=== PATIENT | male | born 1970 | race Caucasian/White ===

== ENCOUNTER 2024-11-15 09:34 | Outpatient (REF) | payer OTHER, SELFPAY ==
--- OUTSIDE RECORDS SUMMARY | 2024-11-15 12:37 | XMS_ITS | Encounter Summary ---
Author Organization [employer] Address [address] [place] [address] [place] [address] Care Team Providers Care Landscape Horticulture Instructor Name Role Phone Marlena Carreno MD Primary Care Provider [phone] Encounter Details Date Type Department Care Team ([facility] st Contact Info) Description 06/21/2024 Orders Only [facility] CHC MED & PEDS [address] [place], [place] [id number] Provider, MD Colby Social History Tobacco Use Types Packs/Day Years Used Date Smoking Tobacco: Never Smokeless Tobacco: Never Alcohol Use Standard Drinks/Week Comments Never 0 (1 standard drink = 0.6 oz pur e alcohol) Sex and Gender Information Value Date Recorded Sex Assigned at Male 08/16/2022 10:22 AM EDT Legal Sex Male 10:22 AM EDT Gender Identity Male 08/16/2022 10:22 AM EDT Sexual Orientation Straight 08/16/2022 10 :22 AM EDT documented as of this encounter Plan of Treatment Not on file documented as of this encounter Procedures Procedure Name Priority Date/Time Associated Diagnosis Comments CT ABDOMEN PELVIS W AND WO CONTRAST Routine 06/19/2024 9:23 AM EDT documented in this encounter Results * CT Abdomen Pelvis w/ and w/o Contrast (06/19/2024 9:23 AM EDT) Anatomical Region Laterality Modality Body, Pelvis, Abdomen Computed T omography Historical Provider MD FORMAN CT PROCEDURES Final R esult documented in this encounter Visit Diagnoses Not on filedocumented in this encounter Care Teams Landscape Horticulture Instructor Relationship Specialty Start Date End Date Marlena Carreno MD [address] [place], [place] [phone] PCP - General Family Medicine 02/26/21 documented as of this encounter
--- OUTSIDE RECORDS SUMMARY | 2024-11-15 12:37 | XMS_ITS | Encounter Summary ---
Author Organization [employer] Address [address] [place] [address] 7t [place] [address] Care Team Providers Care Rental Salesperson Name Role Phone Marlena Carreno MD Primary Care Provider [phone] Reason for Visit * Reason Onset Date Comments Nurse Triage 08/15/2023 Encounter Details Date Type Department Care Team ([facility] Contact Info) Description 08/15/2023 Telephone [facility] CHC MED & PEDS [address] [place] [address] Marlena Carreno MD [address] [place] [address] Nurse Triage Social History Tobacco Use Types Packs/Day Years Used Date Smoking Tobacco: Never Assessed Sex and Gender Information Value Date Recorded Sex Assigned at Male 08/16/2022 10:22 AM EDT Legal Sex Male 10:22 AM EDT Gender Identity Male 08/16/2022 10:22 AM EDT Sexual Orientation Straight 08/16/2022 10 :22 AM EDT documented as of this encounter Miscellaneous Notes * Telephone Encounter - Natalie Garcia RN - 08/15/2023 4:44 PM EDT Triage call Pt reports since 08/12/23 has had some difficulty urinating due to burning sensation.Pt reports some blood in the toilet and urgency. Pt reports has been cancer free for 33 years, Pt traveling in car during triage was short to describe specifics. Pt is neg for fever or flank pain. Ptis offered to come to [facility] today or tomorrow hours given , Pt declined. Pt is given 915am apt with Dr. Myers 08/19/23 due to work schedule unable to take SDC openings in afternoon. Advised to increase liquid intake including some cranberry juice and Pt agrees with disposition and home care advised.Insurance is verified as active prior to booking. Protocol Used: Urinary Symptoms (Adult) Protocol-Based Disposition: See in Office or Video Visit Today Override (Final) Disposition: See in Office or Video Visit within 3 Days Override Reason: Can't get off work Video visit not offered Positive Triage Questions: * Urinating more frequently than usual (i.e., frequency) * Patient wants to be seen * All higher-acuity triage questions were negative Care Advice Discussed: * Reasons To Call Back - Fever occurs - Pain or burning with urination - Unable to urinate and bladder feels full - You become worse * Telephone Encounter - Wanda Greenwood - 08/15/2023 4:11 PM EDT Symptom: Urination Pain Outcome: Schedule an urgent appointment (within 1 hour) or talk to a nurse or provider soon Reason: Blood in urine The caller accepted this outcome Please contact pt at [phone] documented in this encounter Plan of Treatment Not on file documented as of this encounter Visit Diagnoses Not on filedocumented in this encounter Care Teams Rental Salesperson Relationship Specialty Start Date End Date Marlena Carreno MD [address] [place] [id number] PCP - General Family Medicine 02/26/21 documented as of this encounter
--- OUTSIDE RECORDS SUMMARY | 2024-11-15 12:38 | XMS_ITS | Clinical Summary ---
Author Organization [employer] Address [address] [place] [address] 7t [place] [address] Care Team Providers Care Triple Valve Tester Name Role Phone Marlena Carreno MD Primary Care Provider [phone] Allergies No known active allergies Medications divalproex (Depakote) 250 MG EC tabletIndicati ons:Seizure (CMS/HCC) Take 1 tablet (250 mg) by mouth every 8 (eight) hours. 90 tablet 1 09/28/20 22 Active ibuprofen 600 MG tablet Take 1 tablet (600 mg) by mouth every 6 (six) hours if needed for mild pain for up to 20 doses. 20 tablet 09/04/20 24 Active ibuprofen 600 MG tablet Take 1 tablet (600 mg) by mouth every 6 (six) hours if needed for mild pain for up to 20 doses. 20 tablet 10/24/19 25 Active amoxicillin (Amoxil) 500 MG capsule Take 1 capsule (500 mg) by mouth every 8 (eight) hours for 7 days. 21 capsule 10/24/19 25 025 Discontinued(En tered in error) amoxicillin-cl avulanate (Augmentin) 875-125 MG tablet Take 1 tablet by mouth 2 times daily for 7 days. 14 tablet 10/24/19 25 025 Discontinued amoxicillin-cl avulanate (Augmentin) 875-125 MG tablet Take 1 tablet by mouth 2 times daily for 7 days. 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) 11/14/2024 Travel 11/14/2024 Telephone [facility] MED & PEDS [address] [place] [address] Marlena Carreno MD Chart Prep 10/24/2024 10:00 AM EST Office Visit [facility] ADULT DENTAL [address] [place] [address] Johan Kyle 10/24/[address] [address] Marlena Carreno MD Medication Question 10/17/2024 Travel 10/03/2024 Telephone [facility] ADULT DENTAL [address] [place] [address] Ashley Kylericio 09/28/2024 9:00 AM EST Office Visit [facility] MED & PEDS [address] [place] [address] Marlena Carreno MD Postprandial diarrhea (Primary Dx); Dietary counseling; Exercise counseling; Other generalized epilepsy, not intractable, without status epilepticus ([facility]/HCC) 09/28/2024 Travel 09/26/2024 Telephone [facility] MED & PEDS [address] [place] [address] Marlena Carreno MD Chart Prep 09/24/2024 8:00 AM EST Office Visit [facility] ADULT DENTAL [address] [place] [address] Ashley Kylericio 09/21/2024 Travel 09/18/2024 Patient Outreach [facility] MED & PEDS [address] [place] [address] Marlena Carreno MD Pre-visit Planning ([facility] unable to reach [facility]) 09/17/2024 Travel 09/04/2024 8:30 AM EST Office Visit [facility] ADULT DENTAL [address] [place] [address] Johan Kyle 09/03/2024 Travel 09/03/2024 Telephone [facility] MED & PEDS [address] [place] [address] Marlena Carreno MD Referral from Last 3 Months Immunizations Name Administration Dates Next Due Influenza Injectable Quadriv alant Preservative Free IIV4 MDCK 07/08/2023,08/01/2022,09/08/2021 Influenza, IIV3, injectable 10/23/2012, 1 Influenza, Injectable, MDCK, preservative free 07/09/2024 Influenza, trivalent, adjuvanted 10/23/2012,1002/2011 Tdap 08/09/2011 Social History Tobacco Use Types Packs/Day Years Used Date Smoking Tobacco: Never Passive Smoke Exposure: Never Smokeless Tobacco: Never Tobacco Cessation:Counseling Given: Not Answered Alcohol Use Standard Drinks/Week Comments Never 0 (1 standard drink = 0.6 oz pur e alcohol) Housing Stability Answer Date Recorded What is your housing situation today? I have samreen slaughter 09/28/[address] you li ve. Do you have problems with any of the following? None of the above 09/28/2024 Food Insecurity Answer Date Recorded Within the past 12 months, y ou worried that your food would run out before you got money to buy more: Never True 09/28/2024 Within the past 12 months,th e food you bought just didn't last and you didn't have enough money to get more: Never True Transportation Answer Date Recorded In the past 12 months, has l ack of transportation kept you from medical appts, meetings, work or from getting things needed for daily living? No 09/28/2024 Utilities Answer Date Recorded In the past 12 months, has t he electric, gas, oil or water company threatened to shut off services in your home? No 09/28/2024 Internet Access Answer Date Recorded Internet Access Q1 Yes 09/28/2024 Internet Access Q2 Not on file 09/28/2024 Sex and Gender Information Value Date Recorded Sex Assigned at Male 08/16/2022 10:22 AM EDT Legal Sex Male 10:22 AM EDT Gender Identity Male 08/16/2022 10:22 AM EDT Sexual Orientation Straight 08/16/2022 10 :22 AM EDT Last Filed Vital Signs Vital Sign Reading Time Taken Comments Blood Pressure 142/80 11/15/2024 9:12 AM EST Pulse 70 11/15/2024 9:12 AM EST Temperature 36.6 ??C (97.8 ??F) 11/15/2024 9:12 AM ES T Respiratory Rate 20 11/15/2024 9:12 AM EST Oxygen Saturation 97% 11/15/2024 9:12 AM EST Inhaled Oxygen Concentration - - Weight 107 kg (235 lb) 11/15/2024 9:12 AM EST Height 180.3 cm (5' 11 ) 11/15/2024 9:12 AM EST Body Mass Index 32.78 11/15/2024 9:12 AM EST Plan of Treatment Health Maintenance Due Date Last Done Comments CT Colonography 1968 Dental Prophylaxis 1968 Depression Screening 1968 FIT DNA/Cologuard 1968 FIT 1968 FOBT 1968 HIV Screening 1968 Lipid Panel 1968 Sigmoidoscopy 1968 Hepatitis C Screening 1986 Hepatitis B Vaccines (1 of 3 - 19+ 3-dose series) 1987 Dental Oral Exam 05/24/2013 11/23/2012 Dental X-Ray: Full Mouth 11/24/2015 11/23/2012 Pneumococcal Vaccine: 50+ Years (1 of 1 - PCV) 2018 Zoster Vaccines (1 of 2) 2018 DTaP/Tdap/Td Vaccines (2 - Td or Tdap) 08/09/2021 08/09/2011 Colonoscopy 07/20/2025 07/20/2022 Colorectal Cancer Screening 07/20/2025 Dental X-Ray: Bitewings 09/05/2025 09/04/2024, 11/23 Alcohol/Substance Use Screening 09/28/2025 09/28/2024 SDOH Screening 09/28/2025 09/28/2024 Tobacco Screening 11/15/2025 11/15/2024 RSV Patients and Patients Aged 60 years or older (1 - 1-dose 75+ series) 2043 COVID-19 Vaccine Completed 07/09/2024, , 08/01/2022, Additional history exists Influenza Vaccine Completed 07/09/2024, , 08/01/2022, Additional history exists HIB Vaccines Aged Out No longer eligi ble based on patient's age to complete this topic HPV Vaccines Aged Out No longer eligi ble based on patient's age to complete this topic Hepatitis A Vaccines Aged Out No long er eligible based on patient's age to complete this topic IPV Vaccines Aged Out No longer eligi ble based on patient's age to complete this topic Meningococcal Vaccine Aged Out No tl vania eligible based on patient's age to complete this topic RSV under 20 months Aged Out No longe r eligible based on patient's age to complete this topic Rotavirus Vaccines Aged Out No longer eligible based on patient's age to complete this topic Procedures Procedure Name Priority Date/Time Associated Diagnosis Comments 30 EXTRACTION, ERUPTED TOOTH REQUIRING REMOVAL OF BONE AND/OR SECTIONING OF TOOTH, AND INCLUDING ELEVATION OF MUCOPERIOSTEAL FLAP IF INDICATED Routine 10/24/2024 10:00 AM EST NO CHARGE PROCEDURE Routine 09/24/2024 8 :00 AM EST ORAL HYGIENE INSTRUCTIONS Routine 09/04/2024 8:30 AM EST INTRAORAL - PERIAPICAL FIRST RADIOGRAPHIC IMAGE Routine 09/04/2024 8:30 AM EST BITEWING - SINGLE RADIOGRAPHIC IMAGE Routine 09/04/2024 8:30 AM EST 30 LIMITED ORAL EVALUATION - PROBLEM FOCUSED Routine 09/04/2024 8:30 AM EST HM COLONOSCOPY Routine 07/20/2022 DIAGNOSTIC - DIAGNOSTIC IMAGING - INTRAORAL - COMPREHENSIVE SERIES OF RADIOGRAPHIC IMAGES Routine 11/23/2012 12:00 AM EST COMPREHENSIVE ORAL EVALUATION - NEW OR ESTABLISHED PATIENT Routine 11/23/2012 12:00 AM EST from Last 3 Months or Most Recently Relevant to Health Maintenance Results * Hm Colonoscopy (07/20/2022) Colonoscopy Normal Normal Narrative Jagruti Stephens - 07/20/2022 Recommended 3 year follow up Historical Provider MD HEALTH MAINTENANCE Final Result from Last 3 Months or Most Recently Relevant to Health Maintenance Insurance [facility] Care Teams Triple Valve Tester Relationship Specialty Start Date End Date Marlena Carreno MD [address] [place] [address] PCP - General Family Medicine 02/26/21
--- OUTSIDE RECORDS SUMMARY | 2024-11-15 12:38 | XMS_ITS | Encounter Summary ---
Author Organization [email or web address] Address [address] [facility] [address] [place] [address] Care Team Providers Care Wire Weaver Name Role Phone Marlena Carreno MD Primary Care Provider [phone] Encounter Details Date Type Department Care Team ([facility] st Contact Info) Description 08/24/2023 Abstract [facility] MEDICINE [address] [place] [address] Marlena Carreno MD [address] [place], [place] [phone] Social History Tobacco Use Types Packs/Day Years [...] Procedure Name Priority Date/Time Associated Diagnosis Comments COLONOSCOPY Routine 07/20/2022 documented in this encounter Results * Colonoscopy (07/20/2022) Colonoscopy Normal Normal Narrative Jagruti Stephens - 07/20/2022 Recommended 3 year follow up us Historical Provider HEALTH MAINTENANCE Final Result documented in this encounter Visit Diagnoses Not on filedocumented in this encounter Care Teams Wire Weaver Relationship Specialty Start Date End Date Marlena Carreno MD [address] [place] [address] PCP - General Family Medicine 02/26/21 documented as of this encounter
--- OUTSIDE RECORDS SUMMARY | 2024-11-15 12:38 | XMS_ITS | Encounter Summary ---
Author Organization [employer] Address [address] [facility] 7t [place] [address] Care Team Providers Care Varnish Mixer Name Role Phone Marlena Carreno MD Primary Care Provider Reason for Visit * Reason Onset Date Comments Medication Question 10/24/2024 Encounter Details Date Type Department Care Team ([facility] Contact Info) Description 10/24/2024 Telephone [facility] MEDICINE [address] [place] [address] Marlena Carreno MD [address] [place], [place] [phone] Medication Question Social History Tobacco Use Types Packs/Day Years [...] encounter Miscellaneous Notes * Telephone Encounter - Alyson Denton - 10/24/2024 2:38 PM EST Tc from pharmacy in regards instructions of new prescript med (amoxicillin- clavulanate (Augmentin) 875-125 MG tablet). [phone] Millie documented in this encounter Plan of Treatment Not on file documented as of this encounter Visit Diagnoses Not on filedocumented in this encounter Care Teams Varnish Mixer Relationship Specialty Start Date End Date Marlena Carreno MD [address] [place] [address] PCP - General Family Medicine 02/26/21 documented as of this encounter
--- OUTSIDE RECORDS SUMMARY | 2024-11-15 12:38 | XMS_ITS | Encounter Summary ---
Author Organization [employer] Address [address] [place] [address] 7 [place] [address] Care Team Providers Care Link Fabric Machine Operator Name Role Phone Marlena Carreno MD Primary Care Provider [phone] Encounter Details Date Type Department Care Team ([facility] Contact Info) Description 11/15/2024 9:15 AM EST Office Visit [facility] CHC MED & PEDS [address] [place] [address] Marlena Carreno MD [address] [place] [address] Postprandial diarrhea (Primary Dx); Dietary counseling; Exercise counseling; Other generalized epilepsy, not intractable, without status epilepticus (CMS/HCC) Social History Tobacco Use Types Packs/Day Years [...] AM EDT documented as of this encounter Last Filed Vital Signs Vital Sign Reading [...] Mass Index 32.78 11/15/2024 9:12 AM EST documented in this encounter Progress Notes * Marlena Carreno MD - 11/15/2024 9:15 AM EST Subjective Patient ID: Gui Ramos is a 54 y.o. male who presents for follow-up. Gui is a 54-year-old male patient of ours here for lab results and follow up frequent lose stools. He unfortunately did not get his labs done prior to this visit but plans to do so today. He states his loose stools frequency has decreased since not going as often to [facility]. He has remained seizure-free with good compliance with his Depakote dosage. He has a neurology follow-up in Decembers year. Has no new complaints lives with mother due to overall disability. History provided by: Patient market research interviewer used: No Review of Systems Constitutional: Negative for activity change, chills, fever and unexpected weight change. Respiratory: Negative for cough, shortness of breath and wheezing. Cardiovascular: Negative for chest pain, palpitations and leg swelling. Gastrointestinal: Negative for abdominal pain and blood in stool. Endocrine: Negative for polydipsia and polyuria. Genitourinary: Negative for decreased urine volume, difficulty urinating, dysuria and hematuria. Musculoskeletal: Negative for arthralgias and gait problem. Skin: Negative for color change and rash. Neurological: Negative for dizziness and headaches. Hematological: Negative for adenopathy. Psychiatric/Behavioral: Negative for dysphoric mood, hallucinations, sleep disturbance and suicidalideas. The patient is not nervous/anxious. Objective BP (!) 142/80 (BP Location: Left arm, Patient Position: Sitting, BP Cuff Size: Adult) Pulse 70 Temp 97.8 ??F (36.6 ??C) (Oral) Resp 20 Ht 5' 11 (1.803 m) Wt 235 lb (107 kg) SpO2 97% BMI 32.78 kg/m?? Physical Exam Vitals reviewed. Constitutional: Appearance: He is obese. He is not ill-appearing. Cardiovascular: Rate and Rhythm: Normal rate and regular rhythm. Heart sounds: Normal heart sounds. No murmur heard. Pulmonary: Effort: Pulmonary effort is normal. Breath sounds: Normal breath sounds. Neurological: Mental Status: He is alert and oriented to person, place, and time. Mental status is at baseline. Psychiatric: Mood and Affect: Mood normal. Behavior: Behavior normal. Assessment/Plan Diagnoses and all orders for this visit: Postprandial diarrhea Comments: States diarrhea has improved significantly but labs still pending. Patient sent to lab today. Will check lipase, etc. continue to avoid fast foods as he needs to lose weight as well. 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 Get labs drawn today including Depakote level, we will call you with results. documented in this encounter Plan of Treatment Not on file documented as of this encounter Visit Diagnoses Diagnosis Postprandial diarrhea- Primary Dietary counseling Dietary surveillance and counseling Exercise counseling Other generalized epilepsy, not intractable, without status epilepticus (CMS/HCC) documented in this encounter Care Teams Link Fabric Machine Operator Relationship Specialty Start Date End Date Marlena Carreno MD [address] [place] [address] PCP - General Family Medicine 02/26/21 documented as of this encounter
--- OUTSIDE RECORDS SUMMARY | 2024-11-15 12:38 | XMS_ITS | Encounter Summary ---
Author Organization [employer] Address [address] [place] [address] 7 [place] [address] Care Team Providers Care General Ii Farmworker Name Role Phone Marlena Carreno MD Primary Care Provider [phone] Reason for Visit * Reason Onset Date Comments Chart Prep 11/14/2024 Encounter Details Date Type Department Care Team ([facility] Contact Info) Description 11/14/2024 Telephone [facility] CHC MED & PEDS [address] [place] [address] Marlena Carreno MD [address] [place] [address] Chart Prep Social History Tobacco Use Types Packs/Day Years [...] encounter Miscellaneous Notes * Telephone Encounter - Bianca Elaine MA - 11/14/2024 10:54 AM EST Chart Prep Labs: not done Images: done Vaccines due: yes Referrals: complete Screenings: STI screen Overdue care gaps: PHQ-9 documented in this encounter Plan of Treatment Not on file documented as of this encounter Visit Diagnoses Not on filedocumented in this encounter Care Teams General Ii Farmworker Relationship Specialty Start Date End Date Marlena Carreno MD [address] [place] [address] PCP - General Family Medicine 02/26/21 documented as of this encounter
--- OUTSIDE RECORDS SUMMARY | 2024-11-15 12:38 | XMS_ITS | Clinical Summary ---
Author Organization [facility] Address [address] [place] [address] Care Team Providers Care Engine Monitor Name Role Phone Unavailable Primary Care Provider Unavailabl e Social History Tobacco Use Types Packs/Day Years Used Date Smoking Tobacco: Never Assessed Sex and Gender Information Value Date Recorded Sex Assigned at Not on file Gender Identity Not on file Sexual Orientation Not on file Job Start Date Occupation Industry Not on file Not on file Not on file Plan of Treatment Not on file
--- OUTSIDE RECORDS SUMMARY | 2024-11-15 12:38 | XMS_ITS | Encounter Summary ---
Author Organization [employer] Address [address] [facility] 7 [place] [address] Care Team Providers Care Produce Associate Name Role Phone Marlena Carreno MD Primary Care Provider [phone] Reason for Visit * Reason Comments Extraction Encounter Details Date Type Department Care Team ([facility] Contact Info) Description 10/24/2024 10:00 AM EST Office Visit [facility] ADULT DENTAL [address] [place] [address] Barbara Kyle [address] [place] [address] Social History Tobacco Use Types Packs/Day Years [...] Sign Reading Time Taken Comments Blood Pressure 138/80 10/24/2024 9:21 AM EST Pulse - - Temperature - - Respiratory Rate - - Oxygen Saturation - - Inhaled Oxygen Concentration - - Weight - - Height - - Body Mass Index - - documented in this encounter Progress Notes * Barbara Kyle - 10/24/2024 10:00 AM EST Dental procedures in this visit [id number] - EXTRACTION, ERUPTED TOOTH REQUIRING REMOVAL OF BONE AND/OR SECTIONING OF TOOTH, AND INCLUDING ELEVATION OF MUCOPERIOSTEAL FLAP IF INDICATED 30 (Completed) Service provider: Barbara Kyle Billing provider: Duc Marroquin DMD Patient ID: Gui Ramos is a 54 y.o. male. Time Out: Date: 10/24/2024 Location: [facility] Tooth: #30 Procedure: Exam and Extraction Verified the above with patient, dental assistant, and provider. Confirmed via patient's chart, intraorally and by radiographs. Stadium Manager: not applicable Simple Extraction of # [address] done [address] [place] by Dr. Barbara Kyle Risk, benefits, and alternatives discussed with the patient. CONSENT FORM INITIALED & SIGNED BY THE PATIENT AND COUNTERSIGNED BY Dr. Barbara Kyle Medical history: Reviewed in EHR Vitals: Blood pressure 138/80. Allergies: Reviewed in EHR Medications: Reviewed in EHR - LA: 20% topical benzocaine; AMNA block with 2 carpule 2% lidocaine 1:100,000 epinephrine / local infiltration with 2 carpule 4% septocaine/articaine 1:100,000 epinephrine - Gingival fibers using periosteal elevator. - Tooth luxated using straight elevator. - Tooth extracted using: Forceps - Curettage done. - Area checked for sharp bony edges / filing of sharp bony edges done. - Irrigation done using Periogard. - Hemostasis achieved before dismissal. Patient comfortable to walk. - Gauze pack placed. - post op instructions (written + verbal), extra pack of gauze given. - Rx: Augmentin Patient satisfied, left in stable condition NV: Saundra Provider: Dr. Barbara Kyle [place] Roofer: Mihaela Vásquez Supervising Dentist: Dr. Marroquin * Duc Marroquin DMD - 10/24/2024 10:00 AM EST I saw and evaluated the patient, participating in the john portions of the service. I reviewed the resident???s note. I agree with the resident???s findings and plan. Duc Marroquin DMD documented in this encounter Miscellaneous Notes * Addendum Note - Barbara Kyle - 10/24/2024 10:00 AM ESTAddended by: BARBARA KYLE on: 10/24/2024 04:13 PM Modules accepted: Orders documented in this encounter Plan of Treatment Not on file documented as of this encounter Procedures Procedure Name Priority Date/Time Associated Diagnosis Comments 30 EXTRACTION, ERUPTED TOOTH REQUIRING REMOVAL OF BONE AND/OR SECTIONING OF TOOTH, AND INCLUDING ELEVATION OF MUCOPERIOSTEAL FLAP IF INDICATED Routine 10/24/2024 10:00 AM EST documented in this encounter Visit Diagnoses Not on filedocumented in this encounter Care Teams Produce Associate Relationship Specialty Start Date End Date Marlena Carreno MD [address] [place] [address] PCP - General Family Medicine 02/26/21 documented as of this encounter
--- OUTSIDE RECORDS SUMMARY | 2024-11-15 12:38 | XMS_ITS | Encounter Summary ---
Author Organization [employer] Address [address] [facility] 7t [place] [address] Care Team Providers Care Feeder Operator Name Role Phone Marlena Carreno MD Primary Care Provider [phone] Encounter Details Date Type Department Care Team (Latest Contact Info) Description 10/17/2024 Travel Social History Tobacco Use Types Packs/Day Years [...] on filedocumented in this encounter Care Teams Feeder Operator Relationship Specialty Start Date End Date Marlena Carreno MD [address] [place] [address] PCP - General Family Medicine 02/26/21 documented as of this encounter
--- OUTSIDE RECORDS SUMMARY | 2024-11-15 12:38 | XMS_ITS | Encounter Summary ---
Author Organization [employer] Address [address] [facility] 7t [place] [address] Care Team Providers Care Commodity Buyer Name Role Phone Marlena Carreno MD Primary Care Provider Encounter Details Date Type Department Care Team (Latest Contact Info) Description 11/14/2024 Travel Social History Tobacco Use Types Packs/Day [...] on filedocumented in this encounter Care Teams Commodity Buyer Relationship Specialty Start Date End Date Marlena Carreno MD [address] [place] [address] PCP - General Family Medicine 02/26/21 documented as of this encounter
--- OUTSIDE RECORDS SUMMARY | 2024-11-15 12:38 | XMS_ITS | Clinical Summary ---
Author Organization [facility] it Address [address] [place] [address] Care Team Providers Care Manager Benefit Name Role Phone Unavailable Primary Care Provider Unavailabl e Surgical History Surgery Date Site/Laterality Comments OTHER SURGICAL HISTORY 1989 PROCEDURE: [place] ORCHIECTOMY RADICAL TUMOR INGUINAL APPROACH Medical History Medical History Date Comments Seizure (CMS/HCC) 08/09/2011 DX:Seizure (HC C) Testicular cancer (CMS/HCC) 08/06/2009 DX:T esticular cancer (HCC) Family History Medical History Relation Name Comments No Known Problems Aunt No Known Problems Brother 1 Other cancer Brother 2 , sarco ma Alcohol/Drug Father No Known Problems Maternal Grandfather No Known Problems Maternal Grandmother No Known Problems Mother No Known Problems Other No Known Problems Paternal Grandfather No Known Problems Paternal Grandmother No Known Problems Sister No Known Problems Uncle Blindness Neg Hx Cataracts Neg Hx Glaucoma Neg Hx Macular degeneration Neg Hx Strabismus Neg Hx Relation Name Status Comments Aunt Brother 1 avery's sarcoma Brother 2 Father Alive healthy Maternal Grandfather Maternal Grandmother Mother Alive healthy Other Paternal Grandfather Paternal Grandmother Sister Uncle Social History Tobacco Use Types Packs/Day Years Used Date Smoking Tobacco: Never Smokeless Tobacco: Never Alcohol Use Standard Drinks/Week Comments No 0 (1 standard drink = 0.6 oz pur e alcohol) Sex and Gender Information Value Date Recorded Sex Assigned at Not on file Gender Identity Not on file Sexual Orientation Not on file Obstetrics History Plan of Treatment Health Maintenance Due Date Last Done Comments Hepatitis B Vaccines (1 of 3 - 19+ 3-dose series) 1987 Zoster Vaccines (1 of 2) 2018 DTaP,Tdap,and Td Vaccines (2 - Td or Tdap) 08/09/2021 08/09/2011 Cholesterol Screening (Lipid Panel) 09/26/2022 Colorectal Cancer Screening: Colonoscopy 09/26/2022 Depression Screening 09/26/2022 HIV Screening 09/26/2022 Hepatitis C Screening 09/26/2022 Social Influencers of Health Screening 09/26/2022 COVID-19 Vaccine ( - 2023-2 5 season) 2024 Influenza Vaccine (#1) 2024 3, 07/21/2011 HIB Vaccines Aged Out No longer eligi [...] on patient's age to complete this topic MMR Vaccines Aged Out No longer eligi ble based on patient's age to complete this topic Meningococcal ACWY Vaccine Aged Out N o longer eligible based on patient's age to complete this topic Pneumococcal Vaccine: Pediatrics (0 to 5 Years) and At-Risk Patients (6 to 64 Years) Aged Out No longer eligible b ased on patient's age to complete this topic RSV Immunization Patients Under 20 months Aged Out No longer eligible b ased on patient's age to complete this topic Varicella Vaccines Aged Out No longer eligible based on patient's age to complete this topic
[2024-11-15 14:01] LABS: MANUAL DIFF FLAG NO
[2024-11-15 14:21] LABS: Basophils Absolute Auto 0.1 X10*3/uL (0.0-0.2); Basophils Percent Auto 0.8 % (0-2); Eosinophils Absolute Auto 0.3 X10*3/uL (0.0-0.4); Eosinophils Percent Auto 3.1 % (0-4); Imm Gran Abs Auto 0.04 X10*3/uL (0.00-0.03); Imm Gran Pct Auto 0.4 % (0.0-0.4); Lymphocytes Absolute Auto 1.9 X10*3/uL (1.2-4.9); Lymphocytes Percent Auto 21.7 % (20-40); Mean Corpuscular HGB Conc 33.3 g/dl (31.0-36.0); Mean Corpuscular Hemoglobin 30.5 pg (27.0-33.0); Mean Corpuscular Volume 91.5 fL (80.0-98.0); Mean Platelet Volume 10.9 fL (9.4-12.4); Monocytes Absolute Auto 0.7 X10*3/uL (0.1-1.2); Monocytes Percent Auto 8.2 % (2-11); Neutrophils Absolute Auto 5.8 x10*3/uL (2.0-8.3); Neutrophils Percent Auto 65.8 % (45-73); Platelet Count 340 X10*3/uL (160-400); Red Blood Count 4.92 X10*6/uL (4.60-5.80); Red Cell Distribution Width 11.9 % (11.0-16.0); White Blood Count 8.9 X10*3/uL (4.8-10.8)
[2024-11-15 14:26] LABS: Estimated Average Glucose 97 mg/dL; Hemoglobin A1C 126.7402 umol/L; Total Hemoglobin (HGBA1C) 4046.2774 umol/L
[2024-11-15 14:42] LABS: Alanine Aminotransferase 32 U/L (0-40); Albumin Level 4.1 g/dL (3.5-5.0); Alkaline Phosphatase 66 U/L (39-117); Anion Gap 10 (12-20); Aspartate Amino Transferase 32 U/L (5-37); Bilirubin Direct 0.2 mg/dL (0.0-0.5); Bilirubin Total 0.5 mg/dL (0.0-1.0); Blood Urea Nitrogen 8 mg/dL (9-16); Calcium 9.9 mg/dL (8.4-10.2); Carbon Dioxide 27 mmol/L (22-29); Chloride 107 mmol/L (96-108); Cholesterol 161 mg/dL (<200); Estimated Glomerular Filt Rate > 60; Glucose Fasting 96 mg/dL (60-99); HDL Cholesterol 33 mg/dL (>40); LDL Cholesterol Calculated 96 mg/dL (<100); Lipase 20 U/L (8-78); Potassium 4.5 mmol/L (3.3-5.1); Sodium 139 mmol/L (135-145); Total Protein 7.4 g/dL (6.5-8.0); Triglycerides 163 mg/dL (<150)
[2024-11-15 14:53] LABS: Prostate Specific Antigen Scr 1.03 ng/mL (<0.05-4.0)
[2024-11-15 14:54] LABS: Valproate 38.9 mcg/mL (50.0-100.0)
[2024-11-15 14:59] LABS: TSH reflex Free T4 1.57 uIU/mL (0.32-4.0)
[2024-11-16 04:11] LABS: ~HepC Num1 0.09 S/CO (0.00-0.79); ~Hepatitis C Antibody Nonreactive (Nonreactive)
[2024-11-16 16:33] LABS: Immunoglobulin A 199 mg/dL (47-310); Transglutaminase IgA <1.0 U/mL
== END 2024-11-15 09:35 | disposition home or self-care (01) ==
LOC: HO.CHCLDS 09:34
PROVIDERS: Visit Provider Pediatrics
DX: K52.9 Noninfective gastroenteritis and colitis, unspecified (principal); Z12.5 Encounter for screening for malignant neoplasm of prostate; Z13.1 Encounter for screening for diabetes mellitus; Z13.29 Encounter for screening for other suspected endocrine disorder; Z13.220 Encounter for screening for lipoid disorders
CPT/HCPCS: 36415; 80048; 80061; 80076; 80164; 82784; 83036; 83690; 84153; 84443; 85025; 86364; 86803

== ENCOUNTER 2025-06-27 08:53 | Outpatient (AMB) | payer OTHER, SELFPAY ==
--- NOTE | 2025-06-27 09:11 | A.OFFVIS_ITS ---
Intake Visit Reasons: 6m Allergies No Known Allergies (No Known Allergies*) Allergy (Unverified 06/27/25 09:14) Medication List - Last Reconciled 06/27/25 by Suri Godinez CNP divalproex mg PO TID HPI Comments Details: 54-year-old man with h/o seizures that started at age 1 and were described as petit mal seizure where he would blank out, have staring attack and eyes fluttering. In the past, he tried to taper off the medication but he has had recurrence of generalized tonic-clonic seizure. Last seizure was 2021. He was doing okay. No seizures. No medication side effects. Sleep was up and down. He was still working at [employer] and has been living by himself for few years now. [facility] Medical History (Updated 06/27/25 @ 09:13 by Suri Godinez CNP) Convulsions Review of Systems Const Denies chills, Denies daytime sleepiness, Denies difficulty sleeping, Denies fatigue, Denies fever(s), Denies frequent falls, Denies headache(s), Denies increased appetite, Denies poor appetite, Denies snoring, Denies weakness, Denies weight gain and Denies weight loss Eyes Denies loss of vision ENT Denies vertigo, Denies dizziness, Denies headache(s) and Denies neck pain Card Denies chest pain at rest, Denies chest pain with activity, Denies syncope, Denies leg edema, Denies palpitations, Denies dyspnea and Denies dyspnea on exertion Resp Denies cough, Denies dyspnea, Denies dyspnea on exertion and Denies snoring GI Denies abdominal pain, Denies constipation, Denies heartburn, Denies diarrhea and Denies nausea Denies urinary frequency, Denies urinary incontinence and Denies urinary urgency Musc Denies abnormal gait, Denies back pain, Denies myalgias, Denies arthralgias, Denies neck pain, Denies numbness and Denies tingling Neuro Denies abnormal gait, Denies vertigo, Denies dizziness, Denies syncope, Denies frequent falls, Denies headache(s), Denies lack of coordination, Denies loss of vision, Denies memory loss, Denies numbness, Denies Other visual disturbances, Denies restless legs, Denies seizure-like activity, Denies tingling, Denies paresthesias, Denies tremor(s) and Denies weakness Psych Denies anxiety, Denies depression, Denies auditory hallucinations, Denies memory loss and Denies visual hallucinations Endo Denies fatigue and Denies palpitations Physical Exam Const Other: General Appearance:? normal, in no acute distress. Heart:? S1, S2 normal, no murmurs. Lungs:? clear anteriorly and posteriorly. Musculoskeletal:? normal. Extremities:? no edema. Psych:? alert, oriented, cognitive function intact, cooperative with exam. Neuro Other: Abnormal Neurological Findings:?none.? Mental Status: alert and oriented X 3. Normal attention, orientation, memory, and affect. Cranial Nerves: Pupils are equal, round, and reactive to light. External ocular muscles are intact. Visual rousseau are full, no ptosis. Face is symmetrical, no facial weakness or droop. Facial sensations are normal. Tongue protrudes in midline. Palate elevates symmetrically. Shoulder shrugging is normal Motor Examination: Normal muscle tone, bulk and strength. No atrophy or fasciculations. No drift of the extended upper extremities. DTR 2+. Plantars are flexor. Sensory Exam: Normal light touch, temperature, pinprick, vibration, and joint- position sensations. Rhomberg sign is absent. Coordination: No ataxia. No titubation. Gait Exam: Within normal limits. Cerebellar Signs: Lqaear-mz-lanr is okay. Extrapyramidal System: No tremor, rigidity with normal facial expressions. No bradykinesia. No bradyphrenia. Normal arm swing and posture. No propulsion or retropulsion. Speech: Normal. Results Reviewed Results Reviewed: 08/27/15 EEG: Abnormal EEG with paroxysmal features with recurrent high-voltage bursts of sharp activity lasting up to 6 seconds that could be consistent with a seizure disorder Assessment & Plan Assessment & Plan (1) Seizure: Code(s): R56.9 - Unspecified convulsions Category: Medical Plan: Continue Divalproex sodium delayed release 250mg 1 tablet three times a day. Coding Level of Care Code Est Pt Level 4 (31942) Diagnoses Seizure R56.9
--- OUTSIDE RECORDS SUMMARY | 2025-06-27 10:01 | XMS_ITS | Encounter Summary ---
Author Organization [employer] [facility] Address [address] [place] [address] [place] [address] Care Team Providers Care Corduroy Cutting Supervisor Name Role Phone Marlena Carreno MD Primary Care Provider [phone] Encounter Details Date Type Department Care Team ([facility] Contact Info) Description 06/21/2024 Orders Only [facility] MED & PEDS [address] [place] [address] ProviderColby MD Social History Tobacco Use Types Packs/Day Years [...] as of this encounter Plan of Treatment Upcoming Encounters Date Type Department Care Team ([facility] Contact Info) Description 07/03/2025 9:00 AM EDT Office Visit [facility] MED & PEDS [address] [place] [address] Marlena Carreno MD [address] [place] [address] documented as of this encounter Procedures Procedure Name Priority Date/Time Associated Diagnosis Comments CT ABDOMEN PELVIS W AND WO CONTRAST Routine 06/19/2024 9:23 AM EDT documented in this encounter Results * CT Abdomen Pelvis w/ and w/o Contrast (06/19/2024 9:23 AM EDT) Anatomical Region Laterality Modality Body, Pelvis, Abdomen Computed T omography us Historical Provider MD FORMAN CT PROCEDURES Final R esult documented in this encounter Visit Diagnoses Not on filedocumented in this encounter Care Teams Corduroy Cutting Supervisor Relationship Specialty Start Date End Date Marlena Carreno MD [address] [place] [address] PCP - General Family Medicine 02/26/21 documented as of this encounter
--- OUTSIDE RECORDS SUMMARY | 2025-06-27 10:01 | XMS_ITS | Encounter Summary ---
Author Organization [employer] Address [address] [facility] 7t [place] [address] Care Team Providers Care Software Manager Name Role Phone Marlena Carreno MD Primary Care Provider [phone] Reason for Visit * Reason Comments Pre-visit Planning Pre visit planning L VM Encounter Details Date Type Department Care Team ([facility] Contact Info) Description 06/26/2025 Patient Outreach [facility] MEDICINE [address] [place] [address] Marlena Carreno MD [address] [place] [address] Pre-visit Planning (Pre visit planning LVM ) Social History Tobacco Use Types Packs/Day Years Used Date Smoking Tobacco: Never Passive Smoke Exposure: Never Smokeless Tobacco: Never Alcohol Use Standard [...] the past 12 months, has t he [employer], gas, oil or water [employer] threatened to shut off services in your [...] AM EDT documented as of this encounter Progress Notes * Bogdan Jackson - 06/26/2025 11:29 AM EDT CC Bogdan Arthur placed outbound call to patient to complete pre-visit planning. No answer at this time.Patient name and were not confirmed. CC left voicemail requesting return call. Direct contact information provided. documented in this encounter Plan of Treatment Upcoming Encounters Date Type Department Care Team ([facility] st Contact Info) Description 07/03/2025 9:00 AM EDT Office Visit [facility] MED & PEDS [address] [place] [address] Marlena Carreno MD [address] [place] [address] documented as of this encounter Visit Diagnoses Not on filedocumented in this encounter Care Teams Software Manager Relationship Specialty Start Date End Date Marlena Carreno MD [address] [place] [address] PCP - General Family Medicine 02/26/21 documented as of this encounter
--- OUTSIDE RECORDS SUMMARY | 2025-06-27 10:01 | XMS_ITS | Clinical Summary ---
Author Organization [facility] Address [address] [place] [address] Phone Care Team Providers Care Websphere Developer Name Role Phone Marlena Carreno MD Primary Care Provider [phone] Allergies No known active allergies Medications divalproex (DEPAKOTE) [address] tablet Take 1 tablet (250 mg total) by mouth 3 (three) times a day. 09/28/2022 Active ascorbic acid (VITAMIN C) 250 mg tablet Take 1 tablet (250 mg total) by mouth 1 (one) time each day. Active Active Problems Problem Noted Date Diagnosed Date History of adenomatous polyp of colon 05/28/2025 Change in bowel habit 05/28/2025 Rectal pain 05/28/2025 Seizure (CMS/HCC V24, CMS/HCC V28) 08/09/2011 Overview (05/28/2025): Seeing Dr. Peralta and will be seeing Dr. Yoder Encounters Date Type Department Care Team Description 05/28/2025 9:00 AM EDT Office Visit Gastroenterology - [address] [address] Rohit Beavers MD History of adenomatous polyp of colon (Primary Dx); Change in bowel habit; Rectal pain 05/28/2025 Telephone Gastroenterology - [address] [address] Rohit Beavers MD from Last 3 Months Surgical History Surgery Date Site/Laterality Comments OTHER SURGICAL HISTORY 1989 PROCEDURE: [place] ORCHIECTOMY RADICAL TUMOR INGUINAL APPROACH Medical History Medical History Date Comments Seizure ([facility] V24, [facility] V28) 08/09/2011 DX:Seizure (HCC) Testicular cancer ([facility] V24, [facility] V28) DX:Testicular cancer (HCC) Family History Medical History Relation Name Comments No Known Problems Aunt No Known Problems Brother 1 Other cancer Brother 2 , neil ma Alcohol/Drug Father No Known Problems Maternal [...] Recorded Sex Assigned at Not on file Legal Sex Male 8:42 AM EST Gender Identity Not on file Sexual Orientation Not on file Obstetrics History Last Filed Vital Signs Vital Sign Reading Time Taken Comments Blood Pressure - - Pulse - - Temperature - - Respiratory Rate - - Oxygen Saturation - - Inhaled Oxygen Concentration - - Weight 109 kg (240 lb) 05/28/2025 9:19 AM EDT Height 180.3 cm (5' 11 ) 05/28/2025 9:19 AM EDT Body Mass Index 33.47 05/28/2025 9:19 AM EDT Plan of Treatment Upcoming Encounters Date Type Department Care Team (Late st Contact Info) Description 08/06/2025 7:30 AM EDT Appointment [facility] Endoscopy [address] [place] [address] Rohit Beavers MD [address] [place] [phone] Health Maintenance Due Date Last Done Comments Hepatitis B Vaccines (1 of 3 - 19+ 3-dose series) 1987 Pneumococcal Vaccine: 50+ Years (1 of 1 - PCV) 2018 DTaP,Tdap,and Td Vaccines (2 - Td or Tdap) 08/09/2021 08/09/2011 HIV Screening 09/26/2022 Social Influencers of Health Screening 09/26/2022 Depression Screening 10/17/2024 Influenza Vaccine (#1) 2025 , 07/08/2023, 08/01/2022, Additional history exists Cholesterol Screening (Lipid Panel) 11/15/2029 11/15/2024 Colorectal Cancer Screening: Colonoscopy 06/03/2030 06/03/2025 COVID-19 Vaccine Completed 07/09/2024, , 08/01/2022, Additional history exists Hepatitis C Screening Completed 11/15/2024 Zoster Vaccines Completed 04/20/2025, 01/14/2025 HIB Vaccines Aged Out No longer eligi [...] patient's age to complete this topic Meningococcal B Vaccine Aged Out No l onger eligible based on patient's age to complete this topic RSV Immunization Patients Under 20 months Aged Out No longer eligible based on patient's age to complete this topic Varicella Vaccines Aged Out No longer eligible based on patient's age to complete this topic Procedures Procedure Name Priority Date/Time Associated Diagnosis Comments COLONOSCOPY Routine 06/03/2025 3:28 PM EDT from Last 3 Months Results * COLONOSCOPY (06/03/2025 3:28 PM EDT) Anatomical Region Laterality Modality Endoscopy us Historical Provider GI~PROCEDURE ORDERABLES F inal Result from Last 3 Months Insurance MEDICAID - [place] Care Teams Websphere Developer Relationship Specialty Start Date End Date Marlena Carreno MD [address] [place] [phone] PCP - General Internal Medicine 01/28/25
--- OUTSIDE RECORDS SUMMARY | 2025-06-27 10:01 | XMS_ITS | Encounter Summary ---
Author Organization [employer] Address [address] [facility] 7t [place] [address] Care Team Providers Care Actuarial Analyst Name Role Phone Marlena Carreno MD Primary Care Provider [phone] Reason for Visit * Reason Onset Date Comments Medication Question 10/24/2024 Encounter Details Date Type Department Care Team ([facility] Contact Info) Description 10/24/2024 Telephone [facility] MEDICINE [address] [place] [address] Marlena Carreno MD [address] [place], [place] [phone] Medication Question Social History Tobacco Use Types [...] med (amoxicillin- clavulanate (Augmentin) 875-125 MG tablet). [phone] Millie documented in this encounter Plan of Treatment Upcoming Encounters Date Type Department Care Team (Late st Contact Info) Description 07/03/2025 9:00 AM EDT Office Visit [facility] MED & PEDS [address] [place] [address] Marlena Carreno MD [address] [place] [address] documented as of this encounter Visit Diagnoses Not on filedocumented in this encounter Care Teams Actuarial Analyst Relationship Specialty Start Date End Date Marlena Carreno MD [address] [place] [address] PCP - General Family Medicine 02/26/21 documented as of this encounter
--- OUTSIDE RECORDS SUMMARY | 2025-06-27 10:01 | XMS_ITS | Encounter Summary ---
Author Organization [employer] Address [address] [place] [address] 7t [place] [address] Care Team Providers Care Power Generation Turbine Room Operator Name Role Phone Marlena Carreno MD Primary Care Provider [phone] Reason for Visit * Reason Onset Date Comments Nurse Triage 08/15/2023 Encounter Details Date Type Department Care Team ([facility] st Contact Info) Description 08/15/2023 Telephone [facility]ED[facility] [address] [place] [address] Marlena Carreno MD [address] [place] [address] Nurse Triage Social History Tobacco Use Types [...] flank pain. Ptis offered to come to [facility] today or tomorrow hours given , Pt [...] accepted this outcome Please contact pt at [phone] documented in this encounter Plan of Treatment Upcoming Encounters Date Type Department Care Team ([facility] st Contact Info) Description 07/03/2025 9:00 AM EDT Office Visit [facility] MED & PEDS [address] [place] [address] Marlena Carreno MD [address] [place] [address] documented as of this encounter Visit Diagnoses Not on filedocumented in this encounter Care Teams Power Generation Turbine Room Operator Relationship Specialty Start Date End Date Marlena Carreno MD [address] [place] [address] PCP - General Family Medicine 02/26/21 documented as of this encounter
--- OUTSIDE RECORDS SUMMARY | 2025-06-27 10:01 | XMS_ITS | Encounter Summary ---
Author Organization [facility] Address [address] [place] [address] Care Team Providers Care Bindery Machine Setter/Set Up Operator Name Role Phone Marlena Carreno MD Primary Care Provider [phone] Encounter Details Date Type Department Care Team ([facility] Contact Info) Description 08/24/2023 Abstract [facility] [address] [place] [address] Marlena Carreno MD [address] [place], [place] [phone] Social History Tobacco Use Types Packs/Day Years [...] Upcoming Encounters Date Type Department Care Team ([facility] Contact Info) Description 07/03/2025 9:00 AM EDT Office Visit [facility] MED & PEDS [address] [place], [place] [phone] Marlena Carreno MD [address] [place], [place] [phone] documented as of this encounter Procedures Procedure Name Priority Date/Time Associated Diagnosis Comments COLONOSCOPY Routine 07/20/2022 documented in this encounter Results * Colonoscopy (07/20/2022) Colonoscopy Normal Normal Narrative Jagruti Stephens - 07/20/2022 Recommended 3 year follow up us Historical Provider HEALTH MAINTENANCE Final Result documented in this encounter Visit Diagnoses Not on filedocumented in this encounter Care Teams Bindery Machine Setter/Set Up Operator Relationship Specialty Start Date End Date Marlena Carreno MD [address] [place] [address] PCP - General Family Medicine 02/26/21 documented as of this encounter
--- OUTSIDE RECORDS SUMMARY | 2025-06-27 10:01 | XMS_ITS | Encounter Summary ---
Author Organization [employer] Address [address] 7[address] [place] [address] Care Team Providers Care Police Officer Booking Name Role Phone Marlena Carreno MD Primary Care Provider [phone] Encounter Details Date Type Department Care Team (Latest Contact Info) Description 06/26/2025 Travel Social History Tobacco Use Types Packs/Day [...] Upcoming Encounters Date Type Department Care Team ([facility] st Contact Info) Description 07/03/2025 9:00 AM EDT Office Visit [facility] MED & PEDS [address] [place] [address] Marlena Carreno MD [address] [place] [address] documented as of this encounter Visit Diagnoses Not on filedocumented in this encounter Care Teams Police Officer Booking Relationship Specialty Start Date End Date Marlena Carreno MD [address] [place] [address] PCP - General Family Medicine 02/26/21 documented as of this encounter
--- OUTSIDE RECORDS SUMMARY | 2025-06-27 10:01 | XMS_ITS | Clinical Summary ---
Author Organization [employer] Address [address] [facility] 7t [place] [address] Care Team Providers Care Cat Cracker Operator Name Role Phone Marlena Carreno MD Primary Care Provider [phone] Allergies No known active allergies Medications divalproex (Depakote) 250 MG EC tabletIndication s:Seizure (CMS/HCC) Take 1 tablet (250 mg) by mouth every 8 (eight) hours. 90 tablet 1 09/28/2022 Active ibuprofen 600 MG tablet Take 1 tablet (600 mg) by mouth every 6 (six) hours if needed for mild pain for up to 20 doses. 20 tablet 09/04/2024 Active ibuprofen 600 MG tablet Take 1 tablet (600 mg) by mouth every 6 (six) hours if needed for mild pain for up to 20 doses. 20 tablet 10/24/2024 Active Active Problems Problem Noted Date Diagnosed Date Epilepsy 09/28/2024 Generalized abdominal pain 08/15/2023 Diarrhea of presumed infectious origin 3 Encounters Date Type Department Care Team Description 06/26/2025 Travel 06/26/2025 Patient Outreach [facility] [address] [place] [address] Marlena Carreno MD Pre-visit Planning (Pre visit planning LVM ) 06/18/2025 Travel 06/18/2025 Patient Outreach [facility] [address] [place], [place] [phone] Marlena Carreno MD Pre-visit Planning (Pre visit planning LVM ) 04/03/2025 Travel from Last 3 Months Immunizations Immunization Administration Dates Next Due Influenza Injectable Quadriv alant Preservative Free IIV4 MDCK 07/08/2023,08/01/2022,09/08/2021 Influenza, IIV3, injectable 10/23/2012, 1 Influenza, Injectable, MDCK, preservative free 07/09/2024 Influenza, trivalent, adjuvanted 10/23/2012,02/2011 Tdap 08/09/2011 Social History Tobacco Use Types [...] Sign Reading Time Taken Comments Blood Pressure 122/62 01/07/2025 10:06 AM EDT Pulse 66 01/07/2025 10:06 AM EDT Temperature 36.6 C (97.8 F) 11/15/2024 9:12 AM EST Respiratory Rate 20 11/15/2024 9:12 AM EST Oxygen Saturation 97% 11/15/2024 9:12 AM EST Inhaled Oxygen Concentration - - Weight 107 kg (235 lb) 11/15/2024 9:12 AM EST Height 180.3 cm (5' 11 ) 11/15/2024 9:12 AM EST Body Mass Index 32.78 11/15/2024 9:12 AM EST Plan of Treatment Upcoming Encounters Date Type Department Care Team ([facility] st Contact Info) Description 07/03/2025 9:00 AM EDT Office Visit [facility] MED & PEDS [address] [place] [address] Marlena Carreno MD [address] [place] [address] Health Maintenance Due Date Last Done Comments CT Colonography 1968 Depression Screening 1968 FIT DNA/Cologuard 1968 FIT 1968 FOBT 1968 HIV Screening 1968 Sigmoidoscopy 1968 Hepatitis B Vaccines (1 of 3 - 19+ 3-dose series) 1987 Dental Oral Exam 05/24/2013 11/23/2012 Pneumococcal Vaccine: 50+ Years (1 of 1 - PCV) 2018 DTaP/Tdap/Td Vaccines (2 - Td or Tdap) 08/09/2021 08/09/2011 Influenza Vaccine (#1) 2025 , 07/08/2023, 08/01/2022, Additional history exists Dental Prophylaxis 07/11/2025 01/07/2025 Colonoscopy 07/20/2025 07/20/2022 Colorectal Cancer Screening 07/20/2025 Alcohol/Substance Use Screening 09/28/2025 09/28/2024 SDOH Screening 09/28/2025 09/28/2024 Disability Screening 11/14/2025 11/14/2024 Tobacco Screening 01/07/2026 01/07/2025 Dental X-Ray: Bitewings 01/08/2026 01/08/20, 09/04/2024, 11/23/2012 Dental X-Ray: Full Mouth 01/09/2028 01/07/2025, 04/2013 Lipid Panel 11/15/2029 11/15/2024 RSV Patients and Patients Aged 60 [...] Procedure Name Priority Date/Time Associated Diagnosis Comments PROPHYLAXIS - ADULT Routine 01/07/2025 1 0:00 AM EDT INTRAORAL - COMPLETE SERIES OF RADIOGRAPHIC IMAGES Routine 01/07/2025 10:00 AM EDT HEPATITIS C AB W/REFL TO HCV RNA, QN, PCR Routine 11/15/2024 9:57 AM EST Postprandial diarrhea LIPID PANEL, STANDARD Routine 11/15/2024 9:37 AM EST Postprandial diarrhea HM COLONOSCOPY Routine 07/20/2022 COMPREHENSIVE ORAL EVALUATION - NEW OR ESTABLISHED PATIENT Routine 11/23/2012 12:00 AM EST from Last 3 Months or Most Recently Relevant to Health Maintenance Results * Hepatitis C Antibody with Reflex to HCV, RNA, Quantitative, Real-Time PCR (11/15/2024 9:57 AM EST) Hepatitis C Antibody Nonreactive Nonreactive [facility] Comment:Antibodies to HCV no t detected; does not exclude early acuteHCV infection. Blood Venous blood specimen / Unknown 11/15/2024 9:57 AM EST 11/15/2024 1:58 PM EST Marlena Carreno MD LAB BLOOD ORDERABLES Final Re sult Performing Organization Address [facility] Co de Phone Number [facility] [address] [place] [address] [phone] * (ABNORMAL) Lipid Panel, Standard (11/15/2024 9:37 AM EST) Triglycerides 163(H) <150 mg/dL [facility] Comment:Desirable Triglyceri de: less than 150 mg/dLBorderline High Triglyceride 150-199 mg/dLHigh Triglyceride: 200-499 mg/dLVery High Triglyceride: greater than or equal to 5OO mg/dL Cholesterol 161 <200 mg/dL [facility] Comment:Desirable Cholestero l: less than 200 mg/dLBorderline High Cholesterol: 200-239 mg/dLHigh Cholesterol: greater than 239 mg/dL LDL Cholesterol Calculated 96 <100 mg/dL [facility] Comment:Desirable LDL: less than 100 mg/dLNear Optimal/Above Optimal LDL: 110- 129 mg/dLBorderline High LDL: 130-159 mg/dLHigh LDL: 160-189 mg/dLVery High LDL: greater than or equal to 190 mg/dL HDL Cholesterol 33(L) >40 mg/dL [facility] Comment:Desirable HDL: great er than 40 mg/dL Note: This HDL assay may give artificially low results in patients with liver disease. Blood Venous blood specimen / Unknown 11/15/2024 9:37 AM EST 11/15/2024 2:01 PM EST us Marlena Carreno MD LAB BLOOD ORDERABLES Final Re sult Performing Organization Address [facility]/ZIP Co de Phone Number [facility] [address] [place] [address] [phone] * Hm Colonoscopy (07/20/2022) Colonoscopy Normal Normal Narrative Jagruti Stephens - 07/20/2022 Recommended 3 year follow up us Historical Provider HEALTH MAINTENANCE Final Result from Last 3 Months or Most Recently Relevant to Health Maintenance Insurance [facility] Care Teams Cat Cracker Operator Relationship Specialty Start Date End Date Marlena Carreno MD [address] [place] [phone] PCP - General Family Medicine 02/26/21
--- OUTSIDE RECORDS SUMMARY | 2025-06-27 10:01 | XMS_ITS | Clinical Summary ---
Author Organization [facility] Address [address] [place] [address] Care Team Providers Care Rehab Office Coordinator Name Role Phone Unavailable Primary Care Provider [...]
== END 2025-06-27 09:21 | disposition home or self-care (01) ==
LOC: HO.HSM 08:53
PROVIDERS: PCP Pediatrics; Referring Provider Pediatrics; Visit Provider Registered Nurse
DX: R56.9 Unspecified convulsions (principal)
CPT/HCPCS: 99214

== ENCOUNTER 2025-10-15 08:59 | Outpatient (REF) | payer OTHER, SELFPAY ==
--- OUTSIDE RECORDS SUMMARY | 2025-10-15 09:00 | XMS_ITS | Encounter Summary ---
Author Organization [employer] Address [address] [place] [address] [place] [address] Care Team Providers Care Pre Assembly Wirer Name Role Phone Marlena Carreno MD Primary Care Provider [phone] Reason for Referral * Consultation (Routine) - Authorized Specialty Diagnoses / Procedures Referred By Osman kang Referred To Contact Audiology Diagnoses Hearing loss, unspecified hearing loss type, unspecified laterality Marlena Carreno MD [address] [place] [address] Phone: tel: fax: [facility], [address] Phone: tel: fax: Referral ID Status Reason Start Date Expiration Date Visits Requested Visits Authorized [id number] Authorized Specialty Services Required 10/14/2026 6 6 Reason for Visit * Reason Comments Follow-up bp Encounter Details Date Type Department Care Team (Late Contact Info) Description 10/15/2025 9:00 AM EST Office Visit [facility] CHC MED & PEDS [address] [place], [place] [phone] Marlena Carreno MD [address] [place], [place] [phone] Hearing loss, unspecified hearing loss type, unspecified laterality (Primary Dx) Social History Tobacco Use Types Packs/Day Years Used Date Smoking Tobacco: Never Passive Smoke Exposure: Never Smokeless Tobacco: Never Alcohol Use Standard Drinks/Week Comments Never 0 (1 standard drink = 0.6 oz pur e alcohol) Depression Answer Date Recorded Patient Health Questionnaire-9 Score 0 08/14/2025 Patient Health Questionnaire-9 Score 0 08/14/2025 Last PHQ-9: Questionnaire Data Not on file 1 Housing Stability Answer Date Recorded What is [...] off services in your home? No 09/28/2024 Depression Answer Date Recorded Patient Health Questionnaire-2 Score 0 08/14/2025 Internet Access Answer Date Recorded Internet Access [...] Sign Reading Time Taken Comments Blood Pressure 132/78 10/15/2025 9:08 AM EST Pulse 62 10/15/2025 9:08 AM EST Temperature 36.7 C (98.1 F) 10/15/2025 9:08 AM EST Respiratory Rate 16 10/15/2025 9:08 AM EST Oxygen Saturation 96% 10/15/2025 9:08 AM EST Inhaled Oxygen Concentration - - Weight 108 kg (237 lb) 10/15/2025 9:08 AM EST Height 180.3 cm (5' 11 ) 10/15/2025 9:08 AM EST Body Mass Index 33.05 10/15/2025 9:08 AM EST documented in this encounter Plan of Treatment Scheduled Orders Name Type Priority Associated Diagnoses Orde r Schedule Full Full PROPHYLAXIS - ADULT Dental Routine [address] arting 09/23/2025 Scheduled Referrals Name Type Priority Associated Diagnoses Orde r Schedule Referral to Audiology Outpatient Referral Routine Hearing loss, unspecified hearing loss type, unspecified laterality Expected: 10/15/2025 (Approximate), Expires: 10/15/2026 documented as of this encounter Visit Diagnoses Diagnosis Hearing loss, unspecified hearing loss type, unspecified laterality- Primary documented in this encounter Additional Health Concerns Assessment Noted Time PHQ-9 Depression Total Score: 0 08/14/20 25 9:07 AM EDT documented as of this encounter Care Teams Pre Assembly Wirer Relationship Specialty Start Date End Date Marlena Carreno MD [address] [place] [address] PCP - General Family Medicine 02/26/21 documented as of this encounter
--- OUTSIDE RECORDS SUMMARY | 2025-10-15 11:10 | XMS_ITS | Encounter Summary ---
Author Organization [employer] Address [address] [facility] 7t [place] [address] Care Team Providers Care Order Filler Name Role Phone Marlena Carreno MD Primary Care Provider [phone] Encounter Details Date Type Department Care Team ([facility] Contact Info) Description 10/14/2025 Telephone [facility] CH[facility] MED & PEDS [address] [place] [address] Marlena Carreno MD [address] [place] [address] Social History Tobacco Use Types Packs/Day Years [...] Diagnoses Not on filedocumented in this encounter Additional Health Concerns Assessment Noted Time PHQ-9 Depression Total Score: 0 08/14/20 25 9:07 AM EDT documented as of this encounter Care Teams Order Filler Relationship Specialty Start Date End Date Marlena Carreno MD [address] [place] [address] PCP - General Family Medicine 02/26/21 documented as of this encounter
--- OUTSIDE RECORDS SUMMARY | 2025-10-15 11:10 | XMS_ITS | Encounter Summary ---
Author Organization [employer] Address [address] [facility] 7 [place] [address] Care Team Providers Care Film Color Tester Name Role Phone Marlena Carreno MD Primary Care Provider [phone] Reason for Visit * Reason Onset Date Comments chart prep 10/14/2025 Encounter Details Date Type Department Care Team ([facility] Contact Info) Description 10/14/2025 Telephone [facility] MED & PEDS [address] [place] [address] Marlena Carreno MD [address] [place] [address] chart prep Social History Tobacco Use Types Packs/Day Years [...] encounter Miscellaneous Notes * Telephone Encounter - Claudette [address] [place] - 10/14/2025 9:25 AM EST Chart Prep Labs: not done (lvm to please get labs done before tomorrow's appointment or after tomorrow's appointment, fasting) Images: not applicable Referrals: not applicable Vaccines due: PCV20, Tdap, Hep B, Td, and DTAP Screenings: STI screening Overdue care gaps: Not applicable documented in this encounter Plan of Treatment Not on file documented as of this encounter Visit Diagnoses Not on filedocumented in this encounter Additional Health Concerns Assessment Noted Time PHQ-9 Depression Total Score: 0 08/14/20 25 9:07 AM EDT documented as of this encounter Care Teams Film Color Tester Relationship Specialty Start Date End Date Marlena Carreno MD [address] [place] [address] [place] [id number] PCP - General Family Medicine 02/26/21 documented as of this encounter
--- OUTSIDE RECORDS SUMMARY | 2025-10-15 11:10 | XMS_ITS | Encounter Summary ---
Author Organization [employer] Address [address] [facility] 7t [place] [address] Care Team Providers Care Oral And Maxillofacial Pathologist Name Role Phone Marlena Carreno MD Primary Care Provider [phone] Encounter Details Date Type Department Care Team (Latest Contact Info) Description 10/14/2025 Travel Social History Tobacco Use Types Packs/Day [...] documented as of this encounter Care Teams Oral And Maxillofacial Pathologist Relationship Specialty Start Date End Date Marlena Carreno MD [address] [place] [phone] PCP - General Family Medicine 02/26/21 documented as of this encounter
--- OUTSIDE RECORDS SUMMARY | 2025-10-15 11:10 | XMS_ITS | Clinical Summary ---
Author Organization [employer] Address [address] [place] [address] 7t [place] [address] Care Team Providers Care Link Trainer Name Role Phone Marlena Carreno MD Primary Care Provider [phone] Allergies No known active allergies Medications * This document contains information received from the source organization and may not represent a complete record from that organization. divalproex (Depakote) 250 MG EC tabletIndicatio ns:Seizure (CMS/HCC) (HCC) Take 1 tablet (250 mg) by mouth every 8 (eight) hours. 90 tablet 1 09/28/2022 Active dicyclomine (Bentyl) 20 MG tablet Take 1 tablet (20 mg) by mouth before breakfast, before lunch, before evening meal, and at bedtime. 120 tablet 3 08/14/2025 6 Active Active Problems Problem Noted Date Diagnosed Date Epilepsy (CMS/HCC) 09/28/2024 Generalized abdominal pain 08/15/2023 Diarrhea of presumed infectious origin 3 Encounters * This document contains information received from the source organization and may not represent a complete record from that organization. Date Type Department Care Team Description 10/15/2025 9:00 AM EST Office Visit [facility] MED & PEDS [address] [place] [address] Marlena Carreno MD Hearing loss, unspecified hearing loss type, unspecified laterality (Primary Dx) 10/15/2025 Travel 10/14/2025 Travel 10/14/2025 Telephone [facility] P[facility] [address] [place] [address] Marlena Carreno MD 10/14/2025 Telephone [facility] [address] [place] [address] Marlena Carreno MD chart prep 08/14/2025 9:00 AM EDT Office Visit [facility] PED[facility] [address] [place] [address] Marlena Carreno MD Other generalized epilepsy, not intractable, without status epilepticus (HCC) (Primary Dx); Obesity (BMI 30.0-34.9); Irritable bowel syndrome with diarrhea; Anxiety 08/14/2025 Travel 08/12/2025 Telephone [facility] [address] [place] [address] Marlena Carreno MD Chart Prep 08/07/2025 Travel 08/06/2025 Results Follow-Up [facility] [address] [place] [address] Marlena Carreno MD Hm Colonoscopy 08/06/2025 Orders Only [facility] [address] [place], [place] [phone] Colby Choudhury MD 07/22/2025 Telephone [facility] [address] [place] [address] Marlena Carreno MD Chart Prep 07/16/2025 Travel from Last 3 Months Immunizations Immunization Administration Dates Next Due Influenza Injectable Quadriv alant Preservative Free IIV4 MDCK 07/08/2023,08/01/2022,09/08/2021 Influenza, IIV3, injectable 10/23/2012, 1 Influenza, Injectable, MDCK, preservative free 07/09/2024 Influenza, trivalent, adjuvanted 10/23/2012,02/2011 Tdap 08/09/2011 Zoster, Recombinant 04/20/2025,01/14/2025 Social History Tobacco Use Types Packs/Day Years [...] Mass Index 33.05 10/15/2025 9:08 AM EST Plan of Treatment Health Maintenance Due Date Last Done Comments CT Colonography 1968 FIT DNA/Cologuard 1968 FIT 1968 FOBT 1968 HIV Screening 1968 Sigmoidoscopy 1968 Alcohol/Substance Use Screening 1980 Hepatitis B Vaccines (1 of 3 - 19+ 3-dose series) 1987 Dental Oral Exam 05/24/2013 11/23/2012 Pneumococcal Vaccine: 50+ Years (1 of 1 - PCV) 2018 DTaP/Tdap/Td Vaccines (2 - Td or Tdap) 08/09/2021 08/09/2011 Dental Prophylaxis 07/11/2025 01/07/2025 SDOH Screening 09/28/2025 09/28/2024 Disability Screening 11/14/2025 11/14/2024 Dental X-Ray: Bitewings 01/08/2026 01/08/20, 09/04/2024, 11/23/2012 Depression Screening 08/14/2026 08/14/2025, 08/14/20 Tobacco Screening 08/14/2026 08/14/2025 Dental X-Ray: Full Mouth 01/09/2028 01/07/2025, 02/0 04/2013 Lipid Panel 11/15/2029 11/15/2024 Colonoscopy 08/06/2030 08/06/2025, 07/18, 08/06/2025, Additional history exists Colorectal Cancer Screening 08/06/2030 RSV Patients and Patients Aged 60 years or older (1 - 1-dose 75+ series) 2043 Hepatitis C Screening Completed 11/15/2024 Zoster Vaccines Completed 04/20/2025, 01/14/2025 COVID-19 Vaccine Completed 07/26/2025, , 07/08/2023, Additional history exists Influenza Vaccine Completed 07/26/2025, , 07/08/2023, Additional history exists HIB Vaccines Aged Out [...] Priority Date/Time Associated Diagnosis Comments COLONOSCOPY Routine 08/06/2025 3:12 PM EDT COLONOSCOPY Routine 08/06/2025 PROPHYLAXIS - ADULT Routine 01/07/2025 1 0:00 AM EDT INTRAORAL - COMPLETE SERIES OF RADIOGRAPHIC IMAGES Routine 01/07/2025 10:00 AM EDT HEPATITIS C AB W/REFL TO HCV RNA, QN, PCR Routine 11/15/2024 9:57 AM EST Postprandial diarrhea LIPID PANEL, STANDARD Routine 11/15/2024 9:37 AM EST Postprandial diarrhea COMPREHENSIVE ORAL EVALUATION - NEW OR ESTABLISHED PATIENT Routine 11/23/2012 12:00 AM EST from Last 3 Months or Most Recently Relevant to Health Maintenance Results * Colonoscopy (08/06/2025 3:12 PM EDT) [facility] Provider HEALTH MAINTENANCE Final Result * (ABNORMAL) Colonoscopy (08/06/2025) Colonoscopy Abnormal(A ) Normal Marlena Carreno MD HEALTH MAINTENANCE Final Resu lt * Hepatitis C Antibody with Reflex to HCV, RNA, Quantitative, Real-Time PCR (11/15/2024 9:57 AM EST) Hepatitis C Antibody Nonreactive Nonreactive [facility] Comment:Antibodies to HCV no t detected; does not exclude early acuteHCV infection. Blood Venous blood specimen / Unknown 11/15/2024 9:57 AM EST 11/15/2024 1:58 PM EST us Marlena Carreno MD LAB BLOOD ORDERABLES Final Re sult Performing Organization Address [facility] Co de Phone Number [facility] [address] [place] [address] [phone] * (ABNORMAL) Lipid Panel, Standard (11/15/2024 9:37 AM EST) Triglycerides 163(H) <150 mg/dL [facility] Comment:Desirable Triglyceri de: less than 150 mg/dLBorderline High Triglyceride 150-199 mg/dLHigh Triglyceride: 200-499 mg/dLVery High Triglyceride: greater than or equal to 5OO mg/dL Cholesterol 161 <200 mg/dL [facility] Comment:Desirable Cholestero l: less than 200 mg/dLBorderline High Cholesterol: 200-239 mg/dLHigh Cholesterol: greater than 239 mg/dL LDL Cholesterol Calculated 96 <100 mg/dL [facility] Comment:Desirable LDL: less than 100 mg/dLNear Optimal/Above Optimal LDL: 110- 129 mg/dLBorderline High LDL: 130-159 mg/dLHigh LDL: 160-189 mg/dLVery High LDL: greater than or equal to 190 mg/dL HDL Cholesterol 33(L) >40 mg/dL [facility] Comment:Desirable HDL: great er than 40 mg/dL Note: This HDL assay may give artificially low results in patients with liver disease. Blood Venous blood specimen / Unknown 11/15/2024 9:37 AM EST 11/15/2024 2:01 PM EST us Marlena Carreno MD LAB BLOOD ORDERABLES Final Re sult Performing Organization Address [facility] Co de Phone Number [facility] [address] [place] [address] [phone] from Last 3 Months or Most Recently Relevant to Health Maintenance Insurance [facility] Care Teams Link Trainer Relationship Specialty Start Date End Date Marlena Carreno MD [address] [place] [phone] PCP - General Family Medicine 02/26/21
--- OUTSIDE RECORDS SUMMARY | 2025-10-15 11:10 | XMS_ITS | Encounter Summary ---
Author Organization [employer] Address [address] [place] [address] [address]t [place] [address] Care Team Providers Care Size Changer Name Role Phone Marlena Carreno MD Primary Care Provider [phone] Encounter Details Date Type Department Care Team (Late st Contact Info) Description 06/21/2024 Orders Only [facility] CHC MED & PEDS [address] [place] [address] Provider, MD Colby Social History Tobacco Use [...] on filedocumented in this encounter Care Teams Size Changer Relationship Specialty Start Date End Date Marlena Carreno MD [address] [place] [address] PCP - General Family Medicine 02/26/21 documented as of this encounter
--- OUTSIDE RECORDS SUMMARY | 2025-10-15 11:10 | XMS_ITS | Encounter Summary ---
Author Organization [employer] Address [address] [place] [address] 7[address] [place] [address] Care Team Providers Care Slubber Frame Changer Name Role Phone Marlena Carreno MD Primary Care Provider [phone] Reason for Visit * Reason Onset Date Comments Nurse Triage 08/15/2023 Encounter Details Date Type Department Care Team ([facility] st Contact Info) Description 08/15/2023 Telephone [facility] MED & PEDS [address] [place] [address] Marlena Carreno MD [address] [place] [address] Nurse Triage Social History Tobacco Use Types [...] flank pain. Ptis offered to come to [facility] today or tomorrow hours given , [...] accepted this outcome Please contact pt at [phone] documented in this encounter Plan of Treatment Not on file documented as of this encounter Visit Diagnoses Not on filedocumented in this encounter Care Teams Slubber Frame Changer Relationship Specialty Start Date End Date Marlena Carreno MD [address] [place] [address] PCP - General Family Medicine 02/26/21 documented as of this encounter
--- OUTSIDE RECORDS SUMMARY | 2025-10-15 11:10 | XMS_ITS | Clinical Summary ---
Author Organization [facility] Prior to 03/16/[address] [place] [address] Care Team Providers Care Income Tax Advisor Name Role Phone Unavailable Primary Care Provider [...]
--- OUTSIDE RECORDS SUMMARY | 2025-10-15 11:10 | XMS_ITS | Encounter Summary ---
Author Organization [employer] Address [address] [facility] 7t [place] [address] Care Team Providers Care Grease Renderer Name Role Phone Marlena Carreno MD Primary Care Provider [phone] Reason for Visit * Reason Onset Date Comments Medication Question 10/24/2024 Encounter Details Date Type Department Care Team ([facility] Contact Info) Description 10/24/2024 Telephone [facility] [address] [place] [address] Marlena Carreno MD [address] [place], [place] [phone] Medication Question Social History Tobacco Use Types [...] med (amoxicillin- clavulanate (Augmentin) 875-125 MG tablet). [phone] Millie documented in this encounter Plan of Treatment Not on file documented as of this encounter Visit Diagnoses Not on filedocumented in this encounter Care Teams Grease Renderer Relationship Specialty Start Date End Date Marlena Carreno MD [address] [place] [address] PCP - General Family Medicine 02/26/21 documented as of this encounter
--- OUTSIDE RECORDS SUMMARY | 2025-10-15 11:10 | XMS_ITS | Encounter Summary ---
Author Organization [employer] Address [address] [facility] 7[address] [place] [address] Care Team Providers Care Crime Scene Specialist Name Role Phone Marlena Carreno MD Primary Care Provider [phone] Encounter Details Date Type Department Care Team (Latest Contact Info) Description 10/15/2025 Travel Social History Tobacco Use Types Packs/Day [...] documented as of this encounter Care Teams Crime Scene Specialist Relationship Specialty Start Date End Date Marlena Carreno MD [address] [place] [address] PCP - General Family Medicine 02/26/21 documented as of this encounter
--- OUTSIDE RECORDS SUMMARY | 2025-10-15 11:10 | XMS_ITS | Clinical Summary ---
Author Organization [facility] [address] [facility] Address [address] [place] [address] Phone Care Team Providers Care Rn Radiology Name Role Phone Marlena Carreno MD Primary Care Provider [phone] Allergies No known active allergies Medications divalproex (DEPAKOTE) [address] tablet Take 1 tablet (250 mg total) by mouth 3 (three) times a day. 2 Active ascorbic acid (VITAMIN C) 250 mg tablet Take 1 tablet (250 mg total) by mouth 1 (one) time each day. Active polyethylene glycol (Golytely) 236-22.74-6.74 -5.86 gram solution Take 4L by mouth once for one dose. May substitue any PEG. Starting at 2PM the day before your procedure drink 1 8oz glasses at your own pace until you complete half of the gallon. Finish 2nd half of the gallon at 8PM. 4000 mL 5 Active bisacodyL (DULCOLAX) 5 mg EC tablet Take 2 tablets by mouth right before beginning bowel prep. See instructions provided by the office 2 tablet 5 Active Active Problems Problem Noted Date Diagnosed Date Tumor 08/06/2025 History of adenomatous polyp of colon 05/28/2025 Change in bowel habit 05/28/2025 Rectal pain 05/28/2025 Seizure 08/09/2011 Overview (05/28/2025): Seeing Dr. Peralta and will be seeing Dr. Yoder Encounters Date Type Department Care Team Description 08/07/2025 Results Follow-Up Gastroenterology - [address] [facility] [place] [phone] Rohit Beavers MD 08/06/2025 7:30 AM EDT Anesthesia Event [facility] [place] [facility] Endoscopy [address] [place] [phone] Anayeli Willis MD Hard, Shannon, CRNA 08/06/2025 6:30 AM EDT - 08/06/2025 11:59 PM EDT Hospital Encounter [facility] [place] [facility] Endoscopy [address] [place] [phone] Rohit Beavers MD Hard, Shannon, CRNA Kriz, Petra, MD History of adenomatous polyp of colon Discharge Disposition: Home or Self Care from Last 3 Months Surgical History Surgery Date Site/Laterality Comments OTHER SURGICAL HISTORY 1989 PROCEDURE: GA ORCHIECTOMY RADICAL TUMOR INGUINAL APPROACH COLONOSCOPY ORCHIECTOMY Right Medical History Medical History Date Comments Seizure (CMS/HCC V24, CMS/HCC V28) 08/09/2011 DX:Seizure (HCC) Testicular cancer (CMS/HCC V24, CMS/HCC V28) DX:Testicular cancer (HCC) Seizures (CMS/HCC V24, CMS/HCC V28) Testicular cancer (CMS/HCC V24, CMS/HCC V28) Family History Medical History Relation Name Comments [...] drink = 0.6 oz pur e alcohol) Interpersonal Safety Answer Date Record ed Physical Abuse Unrecognized value 08/06/2025 Verbal Abuse Unrecognized value 08/06/2025 Sex and Gender Information Value Date Recorded Sex Assigned at Not on file Legal Sex Male 8:42 AM EST Gender Identity Not on file Sexual Orientation Not on file Last Filed Vital Signs Vital Sign Reading Time Taken Comments Blood Pressure 119/80 08/06/2025 8:09 AM EDT Pulse 58 08/06/2025 8:09 AM EDT Temperature 36.6 C (97.8 F) 08/06/2025 6:54 AM EDT Respiratory Rate 16 08/06/2025 8:09 AM EDT Oxygen Saturation 96% 08/06/2025 8:09 AM EDT Inhaled Oxygen Concentration - - Weight 99.8 kg (220 lb) 08/06/2025 6:54 AM EDT Height 180.3 cm (5' 11 ) 08/06/2025 6:54 AM EDT Body Mass Index 30.68 08/06/2025 6:54 AM EDT Plan of Treatment Health Maintenance Due Date Last Done Comments Hepatitis B Vaccines (1 of 3 - 19+ 3-dose series) 1987 Pneumococcal Vaccine: 50+ Years (1 of 1 - PCV) 2018 DTaP,Tdap,and Td Vaccines (2 - Td or Tdap) 08/09/2021 08/09/2011 HIV Screening 09/26/2022 Social Influencers of Health Screening 09/26/2022 Depression Screening 10/17/2024 Cholesterol Screening (Lipid Panel) 11/15/2029 11/15/2024 Colorectal Cancer Screening: Colonoscopy 08/06/2030 08/06/2025, 06/03/2025 RSV Immunization Adult Patients (1 - 1-dose 75+ series) 2043 Hepatitis [...] Date/Time Associated Diagnosis Comments COLONOSCOPY Routine 08/06/2025 7:48 AM EDT History of adenomatous polyp of colon TISSUE EXAM Routine 08/06/2025 7:43 AM EDT History of adenomatous polyp of colon from Last 3 Months Results * COLONOSCOPY Anesthesia - MAC; [facility] ENDOSCOPY (08/06/2025 7:48 AM EDT) Anatomical Region Laterality Modality Other 08/06/2025 7:34 AM EDT Impressions 08/06/2025 7:51 AM EDT - One 6 mm polyp at the splenic flexure, removed with a cold snare. Resected and retrieved. - A tattoo was seen in the transverse colon. The tattoo site appeared normal. - Diverticulosis in the sigmoid colon. - The examination was otherwise normal on direct and retroflexion views. Recommendation: - Await pathology results. - Repeat colonoscopy in 5 years for surveillance. Narrative 08/06/2025 7:51 AM EDT [facility] [place] [facility] GI Patient Name: Gui Aranda Procedure Date: 08/06/2025 7:34 AM Date of : 1970 Age: 54 Room: ROOM 14 Gender: Male Note Status: Finalized Attending MD: Rohit Beavers MD, Procedure Date No Time: 08/06/2025 Procedure: Colonoscopy Indications: High risk colon cancer surveillance: Personal history of colonic polyps Providers: Rohit Beavers MD Referring MD: Rohit Beavers MD Medicines: Propofol per Anesthesia Complications: No immediate complications. Estimated Blood Loss: Estimated blood loss was minimal. Procedure: Pre-Anesthesia Assessment: - ASA Grade Assessment: II - A patient with mild systemic disease. After I obtained informed consent, the scope was passed under direct vision. Throughout the procedure, the patient's blood pressure, pulse, and oxygen saturations were monitored continuously.The Colonoscope was introduced through the anus and advanced to the cecum, identified by appendiceal orifice and ileocecal valve. The colonoscopy was performed without difficulty. The patient tolerated the procedure well. The quality of the bowel preparation was good. Findings: The perianal and digital rectal examinations were normal. A 6 mm polyp was found in the splenic flexure. The polyp was sessile. The polyp was removed with a cold snare. Resection and retrieval were complete. A tattoo was seen in the transverse colon. The tattoo site appeared normal. Multiple diverticula were found in the sigmoid colon. The exam was otherwise without abnormality on direct and retroflexion views. Procedure Code(s): --- Professional --- 81399, Colonoscopy, flexible; with removal of tumor(s), polyp(s), or other lesion(s) by snare technique Diagnosis Code(s): --- Professional --- Z86.010, Personal history of colonic polyps D12.3, Benign neoplasm of transverse colon (hepatic flexure or splenic flexure) K57.30, Diverticulosis of large intestine without perforation or abscess without bleeding CPT copyright 2020 [employer]. All rights reserved. The codes documented in this report are preliminary and upon stand up forklift operator review may be revised to meet current compliance requirements. Rohit Beavers MD 08/06/2025 7:51:51 AM This report has been signed electronically.Rohit Beavers MD Number of Addenda: 0 Note Initiated On: 08/06/2025 7:34 AM Scope In: Scope Out: Endoscopy Department at [facility] [place] [facility] - [address] [place] [id number] Procedure Note Rohit Beavers MD - 08/06/2025 [facility] [place] [facility] GI Patient Name: Gui Aranda Procedure Date: 08/06/2025 7:34 AM Date of : 1970 Age: 54 Room: ROOM 14 Gender: Male Note Status: Finalized Attending MD: Rohit Beavers MD, Procedure Date No Time: 08/06/2025 Procedure: Colonoscopy Indications: High risk colon cancer surveillance: Personalhistory of colonic polyps Providers: Rohit Beavers MD Referring MD: Rohit Beavers MD Medicines: Propofol per Anesthesia Complications: No immediate complications. Estimated Blood Loss: Estimated blood loss was minimal. Procedure: Pre-Anesthesia Assessment: - ASA Grade Assessment: II - A patient with mild systemic disease. After I obtained informed consent, the scope was passed under direct vision. Throughout theprocedure, the patient's blood pressure, pulse, and oxygen saturations were monitored continuously.The Colonoscope was introduced through the anus and advanced to the cecum, identified by appendiceal orifice and ileocecal valve. The colonoscopy was performed without difficulty. The patient tolerated the procedure well. The quality of the bowel preparation was good. Findings: The perianal and digital rectal examinations were normal. A 6 mm polyp was found in the splenic flexure. The polyp was sessile. The polyp was removed with acold snare. Resection and retrieval were complete. A tattoo was seen in the transverse colon. Thetattoo site appeared normal. Multiple diverticula were found in the sigmoidcolon. The exam was otherwise without abnormality ondirect and retroflexion views. Procedure Code(s): --- Professional --- 41383, Colonoscopy, flexible; with removal of tumor(s), polyp(s), or other lesion(s) by snare technique Diagnosis Code(s): --- Professional --- Z86.010, Personal history of colonic polyps D12.3, Benign neoplasm of transverse colon (hepatic flexure or splenic flexure) K57.30, Diverticulosis of large intestine without perforation or abscess without bleeding CPT copyright 2020 [employer]. All rights reserved. The codes documented in this report are preliminary and upon stand up forklift operator reviewmay be revised to meet current compliance requirements. Rohit Beavers MD 08/06/2025 7:51:51 AM This report has been signed electronically.Rohit Beavers MD Number of Addenda: 0 Note Initiated On: 08/06/2025 7:34 AM Scope In: Scope Out: Endoscopy Department at [facility] - [address] [place] [id number] IMPRESSION: - One 6 mm polyp at the splenic flexure, removed with a cold snare. Resected and retrieved. - A tattoo was seen in the transverse colon. The tattoo site appeared normal. - Diverticulosis in the sigmoid colon. - The examination was otherwise normal on directand retroflexion views. Recommendation: - Await pathology results. - Repeat colonoscopy in 5 years for surveillance. us Rohit Beavers MD GI~PROCEDURE ORDERABLES Fin al Result * Tissue exam (08/06/2025 7:43 AM EDT) Final Diagnosis Polyp, splenic flexure, polypectomy: - Tubular adenoma. 08/07/2025 9:17 AM EDT [facility] at 0917 EDT Gross Description A. Large intestine, Splenic flexure, polyo x1: Labeled polyo x 1 splenic flex . Received in formalin are two soft, wade-pink polypoid tissues measuring approximately 0.3 cm in greatest diameter, which are wrapped in paper and submitted in toto in one cassette two pieces, multiple levels. TS 08/07/2025 9:17 AM EDT [facility] Disclaimer Unless otherwise specified, all tissue is 10% NB formalin fixed and paraffin embedded. 08/07/2025 9:17 AM EDT [facility] Tissue Structure of left colic flexure / Unknown 08/06/2025 7:43 AM EDT 08/06/2025 9:42 AM EDT us Rohit Beavers MD LAB PATHOLOGY ORDERABLES Fi nal Result [facility]) [facility] [address] [place] [address], [place] [phone] from Last 3 Months Insurance [facility] [employer] Care Teams Rn Radiology Relationship Specialty Start Date End Date Marlena Carreno MD [address] [facility] [place] [phone] PCP - General Internal Medicine 01/28/25
--- OUTSIDE RECORDS SUMMARY | 2025-10-15 11:10 | XMS_ITS | Encounter Summary ---
Author Organization [employer] [facility] Address [address] [facility] 7t [place] [address] Care Team Providers Care Nuclear Logging Engineer Name Role Phone Marlena Carreno MD Primary Care Provider [phone] Encounter Details Date Type Department Care Team (Late st Contact Info) Description 08/24/2023 Abstract [facility] MEDICINE [address] [place] [address] Marlena Carreno MD [address] [place], [place] [phone] Social History Tobacco Use Types Packs/Day Years [...] 07/20/2022 documented in this encounter Results * Hm Colonoscopy (07/20/2022) Colonoscopy Normal Normal Narrative Jagruti Stephens - 07/20/2022 Recommended 3 year follow up Historical Provider HEALTH MAINTENANCE Final Result documented in this encounter Visit Diagnoses Not on filedocumented in this encounter Care Teams Nuclear Logging Engineer Relationship Specialty Start Date End Date Marlena Carreno MD [address] [place] [id number] PCP - General Family Medicine 02/26/21 documented as of this encounter
[2025-10-15 15:59] LABS: Alanine Aminotransferase 42 U/L (0-40); Albumin Level 4.3 g/dL (3.5-5.0); Alkaline Phosphatase 73 U/L (39-117); Anion Gap 10 (12-20); Aspartate Amino Transferase 37 U/L (5-37); Blood Urea Nitrogen 15 mg/dL (9-16); Calcium 9.8 mg/dL (8.4-10.2); Carbon Dioxide 28 mmol/L (22-29); Chloride 107 mmol/L (96-108); Cholesterol 200 mg/dL (<200); Estimated Glomerular Filt Rate > 60; HDL Cholesterol 38 mg/dL (>40); Potassium 4.3 mmol/L (3.3-5.1); Sodium 141 mmol/L (135-145); Total Protein 6.8 g/dL (6.5-8.0); Triglycerides 192 mg/dL (<150)
[2025-10-15 16:19] LABS: Folate 17.5 ng/mL (> or = 4.0); Vitamin B12 537 pg/mL (200-900)
== END 2025-10-15 09:00 | disposition home or self-care (01) ==
LOC: HO.CHCLDS 08:59
PROVIDERS: Visit Provider Pediatrics
DX: G40.409 Other generalized epilepsy and epileptic syndromes, not intractable, without status epilepticus (principal); E66.811 Obesity, class 1; Z13.29 Encounter for screening for other suspected endocrine disorder; Z13.1 Encounter for screening for diabetes mellitus
CPT/HCPCS: 36415; 80053; 80061; 80164; 82607; 82746; 83036; 84443; 86140